=== PATIENT | female | born 1945 | race Caucasian/White ===

== ENCOUNTER 2020-06-07 09:35 | Outpatient (CLI) | payer OTHER, SELFPAY ==
--- NOTE | ~2020-06-07 | DEXA_ITS ---
Bone Density Report Name: Barbra Sim Age: 75 Sex: Female Ethnicity: White Date of : 1945 Indication: postmenopausal; parental hip fracture; height loss; Referring Provider: Larisa Small Study: Bone densitometry was performed. Exam Date: June 07, 2020 Accession number: [id number] Bone Density: Region BMD T-score Z-score Classification AP Spine (L1-L4) 1.005 -0.4 2.0 Normal Femoral Neck (Left) 0.771 -0.7 1.4 Normal Total Hip (Left) 0.926 -0.1 1.7 Normal Total Hip Bilateral Avg 0.914 -0.2 1.6 Normal Femoral Neck (Right) 0.819 -0.3 1.8 Normal Total Hip (Right) 0.901 -0.3 1.5 Normal World Health Organization criteria for BMD impression classify patients as: Normal (T-score at or above -1.0), Osteopenia (T-score between -1.0 and -2.5), or Osteoporosis (T-score at or below -2.5). 10-year Fracture Risk: FRAX not reported because: All T-scores for Spine Total, Hip Total, Femoral Neck at or above -1.0 Previous Exams: Region Exam Age BMD T-score BMD Change BMD Change Date g/cm2 vs Baseline vs Previous AP Spine(L1-L4) 06/07/2020 75 1.005 -0.4 0.072(7.7%)# 0.072(7.7%)# 09/15/2011 66 0.933 -1.0 Total Hip(Left) 06/07/2020 75 0.926 -0.1 -0.056(-5.7%)# -0.056(-5.7%)# 09/15/2011 66 0.983 0.3 Total Hip(Right) 06/07/2020 75 0.901 -0.3 -0.057(-6.0%)# -0.057(-6.0%)# 09/15/2011 66 0.959 0.1 *Denotes significance at 95% confidence level, LSC for AP Spine = 0.022 g/cm2, LSC for Total Hip = 0.027 g/cm2 Clinical Information Provided by Patient: Parent has had a hip fracture Has used the following medications: Vitamin D Patient maximum height was 62.5 Menopause Age: 55 Drinks caffeinated beverages Onset of menses at age 14 Number of children 2 Impression: The patient has normal bone mass. The patient has risk factors, including: parental hip fracture. No significant bone loss was observed. Discussion: BONE DENSITY IS ABOVE THE MINIMUM DESIRABLE LEVEL AT ALL SKELETAL SITES TESTED. This patient?s bone mineral density is above the minimum desirable level (T-score -1.0 or better) at all sites measured. The patient should follow a healthful lifestyle (good nutrition with adequate calcium and vitamin D, and appropriate weight-bearing exercise). Follow-Up: Consider repeating this study in 5 years or sooner if there is some new clinical indication. Reported by: TEAGAN on 06/07/2020 10:10:00 AM.
== END 2020-06-07 09:36 | disposition home or self-care (01) ==
PROVIDERS: PCP Family Medicine; Visit Provider Physician Assistant
DX: Z78.0 Asymptomatic menopausal state (principal)
CPT/HCPCS: 77080